=== PATIENT | male | born 1970 | race Hispanic/Latino ===

== ENCOUNTER 2018-02-22 18:17 | Observation (INO) | payer OTHER ==
[2018-02-22] MEDS ORDERED: ASPIRIN 81 MG CHEWABLE TABLET ONE (18:43)
[2018-02-22] MEDS ORDERED: NA CHLORIDE 0.9% 1,000 ML ONE (18:51)
[2018-02-22 19:21] LABS: Absolute Lymphocytes (CBC) 1.9 K/uL (0.7-4.9); Absolute Monocytes 0.8 K/uL (0.1-1.3); Absolute Neutrophil 9.6 K/uL (1.8-8.0); Basophils % 0.3 % (0-1.3); Eosinophils % 0.4 % (0-4.4); Hematocrit 40.8 % (39.6-49.0); Lymphocytes % 15.6 % (15.3-44.8); MCH 30.1 pg (27.0-35.0); MPV 8.7 fL (7.6-11.3); Monocytes % 6.4 % (3.3-12.3); RBC Red Blood Cell Count 4.58 M/uL (4.33-5.43)
[2018-02-22 19:32] LABS: ALT/SGPT 34 U/L (12-78); AST/SGOT 32 U/L (15-37); Albumin 3.7 g/dL (3.4-5.0); Alkaline Phosphatase 71 U/L (45-117); BUN Blood Urea Nitrogen 14 mg/dL (7-18); Bicarbonate 25 mmol/L (21-32); Bilirubin Direct 0.2 mg/dL (0-0.2); Bilirubin Total 0.9 mg/dL (0.2-1.0); Glucose Level 152 mg/dL (74-106); Magnesium 1.5 mg/dL (1.8-2.4); NT PRO-BNP 65 pg/mL (<125); Protein, Total 6.4 g/dL (6.4-8.2); Sodium Level 123 mmol/L (136-145); Troponin (Emerg Dept Use Only) 0.03 ng/mL (0.0-0.045)
[2018-02-22 19:34] LABS: Potassium 2.9 mmol/L (3.5-5.1)
[2018-02-22 19:36] LABS: Protime INR 1.09
--- NOTE | 2018-02-22 19:41 | RAD REPORT ---
EXAM DESCRIPTION: RAD - Chest Single View - 02/22/2018 7:29 pm CLINICAL HISTORY: CHEST PAIN Chest pain. COMPARISON: No comparisons FINDINGS: Portable technique limits examination quality. Mild interstitial pulmonary edema. The heart is normal in size. No displaced fractures. IMPRESSION: Mild interstitial pulmonary edema.
[2018-02-22] MEDS ORDERED: ONDANSETRON 4 MG/2 ML VIAL IV PRN (20:14)
[2018-02-22] MEDS ORDERED: ACETAMINOPHEN 500 MG TAB PO PRN (20:14)
[2018-02-22] MEDS ORDERED: MORPHINE 2 MG/ML SYR IV PRN (20:14)
--- NOTE | 2018-02-22 20:22 | ER ---
Nurse's Notes [facility] Name: Neri Frederick Age: 47 yrs Sex: Male : 1970 Arrival Date: 02/22/2018 Time: 18:18 Bed 6 Private MD: Diagnosis: Hypo-osmolality and hyponatremia;Hypomagnesemia;Hypokalemia Presentation: 02/22 18:19 Presenting complaint: Patient states: around 6:00 pm tonight at work, i started shaking hj and sweating, had this terrible headache (on the back of my neck), started having chest pain that radiates to my L arm; reports nausea;. Transition of care: patient was not received from another setting of care. Onset of symptoms was February 22, 2018. Risk Assessment: Do you want to hurt yourself or someone else? Patient reports no desire to harm self or others. Initial Sepsis Screen: Does the patient meet any 2 criteria? No. Patient's initial sepsis screen is negative. Does the patient have a suspected source of infection? No. Patient's initial sepsis screen is negative. Care prior to arrival: None. 18:19 Method Of Arrival: Ambulatory 18:19 Acuity: CHRIS 3 hj Triage Assessment: 18:23 Headache History: Denies prior headaches. General: Appears in no apparent distress. hj uncomfortable, Behavior is calm, cooperative, appropriate for age. Pain: Complains of pain in head, chest Pain currently is 5 out of 10 on a pain scale. Pain began 30 min ago. Also complains of nausea. 18:24 Neuro: Level of Consciousness is awake, alert, obeys commands, Oriented to person, hj place, time, situation, Appropriate for age. Historical: - Allergies: 18:23 No Known Allergies; hj - Home Meds: 18:23 valsartan-hydrochlorothiazide 160-12.5 mg oral tab 1 tab once daily [Active]; Zyrtec 10 hj mg Oral tab 1 tab once daily [Active]; - PMHx: 18:23 Hypertension; hj - PSHx: 18:23 None; hj - Immunization history:: Adult Immunizations up to date. - Social history:: Smoking status: Patient/guardian denies using tobacco, Patient/guardian denies using alcohol. - Ebola Screening: : Patient negative for fever greater than or equal to 101.5 degrees Fahrenheit, and additional compatible Ebola Virus Disease symptoms Patient denies exposure to infectious person Patient denies travel to an Ebola-affected area in the 21 days before illness onset. Screenin:23 Abuse screen: Denies threats or abuse. Denies injuries from another. Nutritional hj screening: No deficits noted. Tuberculosis screening: No symptoms or risk factors identified. Fall Risk None identified. Assessment: 18:36 General: Appears in no apparent distress. comfortable, Behavior is calm, cooperative. rv Pain: Complains of pain in NECK Pain currently is 5 out of 10 on a pain scale. Neuro: Level of Consciousness is awake, alert, obeys commands, Oriented to person, place, time, situation. Cardiovascular: Capillary refill < 3 seconds. Respiratory: Airway is patent. GI: No signs and/or symptoms were reported involving the gastrointestinal system. : No signs and/or symptoms were reported regarding the genitourinary system. EENT: No signs and/or symptoms were reported regarding the EENT system. Derm: Skin is intact. 19:02 General: Appears in no apparent distress. comfortable, Behavior is calm, cooperative, ea appropriate for age. Pain: Complains of pain in right occipital area and right base of the skull Pain currently is 8 out of 10 on a pain scale. Quality of pain is described as aching. Neuro: Level of Consciousness is awake, alert, obeys commands, Oriented to person, place, time, situation. Cardiovascular: Capillary refill < 3 seconds Patient's skin is warm and dry. Respiratory: Airway is patent Respiratory effort is even, unlabored, Respiratory pattern is regular, symmetrical, Breath sounds are clear bilaterally. GI: Abdomen is non-distended, Bowel sounds present X 4 quads. Derm: Skin is pink, warm \T\ dry. 20:00 Reassessment: Patient and/or family updated on plan of care and expected duration. Pain ea level reassessed. Patient is alert, oriented x 3, equal unlabored respirations, skin warm/dry/pink. Provider at bedside updating pt on plan of care. 21:12 Reassessment: Patient and/or family updated on plan of care and expected duration. Pain ea level reassessed. Patient is alert, oriented x 3, equal unlabored respirations, skin warm/dry/pink. Report called to receiving nurse on second floor. Vital Signs: 18:24 BP 143 / 93; Pulse 74; Resp 18; Temp 97.6(TE); Pulse Ox 100% on R/A; Weight 79.38 kg; hj Height 5 ft. 6 in. (167.64 cm); Pain 5/10; 19:05 BP 135 / 87; Pulse 75; Resp 18; Pulse Ox 99% ; ea 20:29 BP 140 / 89; Pulse 71; Resp 18; Pulse Ox 99% ; ea 21:13 BP 137 / 86; Pulse 67; Resp 20; Pulse Ox 96% on R/A; ea 18:24 Body Mass Index 28.25 (79.38 kg, 167.64 cm) hj ED Course: 18:18 Patient arrived in ED. as 18:22 Triage completed. hj 18:24 Arm band placed on left wrist. hj 18:24 Patient has correct armband on for positive identification. Placed in gown. Bed in low hj position. Call light in reach. Side rails up X 1. Adult w/ patient. 18:37 Miguelangel Zuniga MD is Attending Physician. gs 18:37 Initial lab(s) drawn, by az, sent to lab. EKG done. Inserted saline lock: 20 gauge in rv right antecubital area, using aseptic technique. Blood collected. 18:59 Report given to Octavio. 19:02 Julee Russo RN is Primary Nurse. ea 19:25 XRAY Chest (1 view) In Process Unspecified. EDMS 19:33 Notified ED physician of a critical lab result(s). potassium of 2.9. 20:20 Princess Sotelo MD is Hospitalizing Provider. gs 21:10 No provider procedures requiring assistance completed. Patient admitted, IV remains in ea place. Administered Medications: 18:45 Drug: NS 0.9% 1000 ml Route: IV; Rate: 1 bolus; Site: right antecubital; rv 20:05 Follow up: Response: No adverse reaction; IV Status: Completed infusion; IV Intake: ea 1000ml 20:27 Drug: Magnesium Sulfate 2 grams Route: IVPB; Infused Over: 2 hrs; Site: right ea antecubital; 21:14 Follow up: Response: No adverse reaction; IV Status: Infusion continued upon admission ea 20:27 Drug: Potassium Effervescent Tablet 50 mEq Route: PO; ea 20:45 Follow up: Response: No adverse reaction ea Intake: 20:05 IV: 1000ml; Total: 1000ml. ea Output: 20:44 Urine: 1800ml (Voided); Total: 1800ml. ea Outcome: 20:21 Decision to Hospitalize by Provider. 21:10 Admitted to Med/surg accompanied by tech, via wheelchair, room 212, with chart, Report ea called to Receiving nurse on second floor. 21:10 Condition: stable 21:10 Instructed on the need for admit. 21:13 Patient left the ED. ea Signatures: Dispatcher [employer] EDMS Heather Lundberg, RN RN Virginia Vaca RN RN Marline Valle Henry RN RN Julee Crespo RN RN ea Starr, Gregory, MD MD gs Vicente, Ronaldo RN RN rv Corrections: (The following items were deleted from the chart) 18:25 18:24 Pulse 74bpm; Resp 18bpm; Pulse Ox 100% RA; Temp 97.6F Temporal; 79.38 kg; Height hj 5 ft. 6 in.; BMI: 28.2; Pain 5/10; hj
--- NOTE | 2018-02-22 20:22 | EDPHYS ---
Physician Documentation [facility] Name: Neri Frederick Age: 47 yrs Sex: Male : 1970 Arrival Date: 02/22/2018 Time: 18:18 Bed 6 Private MD: ED Physician Miguelangel Zuniga HPI: 02/22 20:24 This 47 yrs old Male presents to ER via Ambulatory with complaints of Chest gs Pain, . 20:24 The patient or guardian reports chest pain that is located primarily in the anterior gs chest wall. Onset: today. The pain radiates to the left arm, left neck. Associated signs and symptoms: Pertinent negatives: diaphoresis, shortness of breath. The chest pain is described as a heaviness. Duration: The patient or guardian reports multiple episodes, that have now resolved, that wax and wane. Modifying factors: The symptoms are alleviated by nothing. the symptoms are aggravated by nothing. Severity of pain: At its worst the pain was moderate in the emergency department the pain has resolved. The patient has experienced similar episodes in the past, a few times. 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 Historical: - Allergies: 18:23 No Known Allergies; hj - Home Meds: 18:23 valsartan-hydrochlorothiazide 160-12.5 mg oral tab 1 tab once daily [Active]; Zyrtec 10 hj mg Oral tab 1 tab once daily [Active]; - PMHx: 18:23 Hypertension; hj - PSHx: 18:23 None; hj - Immunization history:: Adult Immunizations up to date. - Social history:: Smoking status: Patient/guardian denies using tobacco, Patient/guardian denies using alcohol. - Ebola Screening: : Patient negative for fever greater than or equal to 101.5 degrees Fahrenheit, and additional compatible Ebola Virus Disease symptoms Patient denies exposure to infectious person Patient denies travel to an Ebola-affected area in the 21 days before illness onset. ROS: 20:24 All other systems are negative. gs Exam: 20:24 Head/Face: Normocephalic, atraumatic. Eyes: Pupils equal round and reactive to light, gs extra-ocular motions intact. Lids and lashes normal. Conjunctiva and sclera are non-icteric and not injected. Cornea within normal limits. Periorbital areas with no swelling, redness, or edema. ENT: Nares patent. No nasal discharge, no septal abnormalities noted. Tympanic membranes are normal and external auditory canals are clear. Oropharynx with no redness, swelling, or masses, exudates, or evidence of obstruction, uvula midline. Mucous membranes moist. Neck: Trachea midline, no thyromegaly or masses palpated, and no cervical lymphadenopathy. Supple, full range of motion without nuchal rigidity, or vertebral point tenderness. No Meningismus. Chest/axilla: Normal chest wall appearance and motion. Nontender with no deformity. No lesions are appreciated. Cardiovascular: Regular rate and rhythm with a normal S1 and S2. No gallops, murmurs, or rubs. Normal PMI, no JVD. No pulse deficits. Respiratory: Lungs have equal breath sounds bilaterally, clear to auscultation and percussion. No rales, rhonchi or wheezes noted. No increased work of breathing, no retractions or nasal flaring. Abdomen/GI: Soft, non-tender, with normal bowel sounds. No distension or tympany. No guarding or rebound. No evidence of tenderness throughout. Back: No spinal tenderness. No costovertebral tenderness. Full range of motion. Skin: Warm, dry with normal turgor. Normal color with no rashes, no lesions, and no evidence of cellulitis. MS/ Extremity: Pulses equal, no cyanosis. Neurovascular intact. Full, normal range of motion. Neuro: Awake and alert, GCS 15, oriented to person, place, time, and situation. Cranial nerves II-XII grossly intact. Motor strength 5/5 in all extremities. Sensory grossly intact. Cerebellar exam normal. Normal gait. 20:24 Constitutional: The patient appears alert, awake. 20:24 ECG was reviewed by the Attending Physician. Vital Signs: 18:24 BP 143 / 93; Pulse 74; Resp 18; Temp 97.6(TE); Pulse Ox 100% on R/A; Weight 79.38 kg; hj Height 5 ft. 6 in. (167.64 cm); Pain 5/10; 19:05 BP 135 / 87; Pulse 75; Resp 18; Pulse Ox 99% ; ea 20:29 BP 140 / 89; Pulse 71; Resp 18; Pulse Ox 99% ; ea 21:13 BP 137 / 86; Pulse 67; Resp 20; Pulse Ox 96% on R/A; ea 18:24 Body Mass Index 28.25 (79.38 kg, 167.64 cm) hj MDM: 18:42 Patient medically screened. gs 20:24 Differential diagnosis: acute myocardial infarction, coronary artery disease pneumonia. Data reviewed: vital signs, nurses notes. 02/22 18:34 Order name: Basic Metabolic Panel; Complete Time: 19:35 02/22 18:34 Order name: CBC with Diff; Complete Time: 19:35 02/22 18:34 Order name: LFT's; Complete Time: 19:35 02/22 18:34 Order name: Magnesium; Complete Time: 19:35 02/22 18:34 Order name: NT PRO-BNP; Complete Time: 19:36 02/22 18:34 Order name: PT-INR; Complete Time: 19:42 02/22 18:34 Order name: Troponin (emerg Dept Use Only); Complete Time: 19:36 02/22 18:42 Order name: CPK; Complete Time: 19:35 02/22 20:17 Order name: Comprehensive Metabolic Panel [facility] 02/22 20:17 Order name: Comprehensive Metabolic Panel [facility] 02/22 20:17 Order name: Creatine Phosphokinase [facility] 02/22 20:17 Order name: Creatine Phosphokinase [facility] 02/22 20:17 Order name: Troponin I [facility] 02/22 20:17 Order name: Troponin I [facility] 02/22 18:34 Order name: XRAY Chest (1 view); Complete Time: 19:42 02/22 18:34 Order name: EKG; Complete Time: 18:35 02/22 18:34 Order name: Cardiac monitoring; Complete Time: 18:36 02/22 18:34 Order name: EKG - Nurse/Tech; Complete Time: 18:36 02/22 18:34 Order name: IV Saline Lock; Complete Time: 18:36 02/22 18:34 Order name: Labs collected and sent; Complete Time: 18:36 02/22 18:34 Order name: O2 Per Protocol; Complete Time: 18:35 02/22 18:34 Order name: O2 Sat Monitoring; Complete Time: 18:35 02/22 20:17 Order name: CONS Pharmacy Consult [facility] 02/22 20:17 Order name: Regular EDMS 02/22 20:17 Order name: Troponin I EDMS 02/22 20:17 Order name: CBC with Automated Diff EDMS 02/22 20:18 Order name: CBC with Automated Diff EDMS EC:24 Rate is 76 beats/min. Rhythm is regular. DE interval is normal. QRS interval is gs prolonged. No Q waves. ST Segment is depressed in leads III, aVF, V6. Clinical impression: NSR w/ Non-specific ST/T Changes. Interpreted by me. Administered Medications: 18:45 Drug: NS 0.9% 1000 ml Route: IV; Rate: 1 bolus; Site: right antecubital; rv 20:05 Follow up: Response: No adverse reaction; IV Status: Completed infusion; IV Intake: ea 1000ml 20:27 Drug: Magnesium Sulfate 2 grams Route: IVPB; Infused Over: 2 hrs; Site: right ea antecubital; 21:14 Follow up: Response: No adverse reaction; IV Status: Infusion continued upon admission ea 20:27 Drug: Potassium Effervescent Tablet 50 mEq Route: PO; ea 20:45 Follow up: Response: No adverse reaction ea Disposition: 02/22/18 20:21 Hospitalization ordered by Princess Sotelo for Inpatient Admission. Preliminary diagnosis are Hypo-osmolality and hyponatremia, Hypomagnesemia, Hypokalemia. - Bed requested for Telemetry/MedSurg (Inpatient). - Status is Inpatient Admission. ea - Condition is Stable. - Problem is new. - Symptoms have improved. UTI on Admission? No Signatures: Dispatcher [employer] EDNY Heather Lundberg RN RN ch Lewis, Kimberly, RN RN kl Joaquin, Henry, RN RN hj Antunez, Elena, RN RN ea Starr, Gregory, MD MD gs Vicente, Ronaldo, RN RN rv Corrections: (The following items were deleted from the chart) 20:32 20:21 Hospitalization Ordered by Princess Sotelo MD for Inpatient Admission. Preliminary kl diagnosis is Hypo-osmolality and hyponatremia; Hypomagnesemia; Hypokalemia. Bed requested for Telemetry/MedSurg (Inpatient). Status is Inpatient Admission. Condition is Stable. Problem is new. Symptoms have improved. UTI on Admission? No. 21:13 20:32 02/22/2018 20:21 Hospitalization Ordered by Princess Sotelo MD for Inpatient ea Admission. Preliminary diagnosis is Hypo-osmolality and hyponatremia; Hypomagnesemia; Hypokalemia. Bed requested for Telemetry/MedSurg (Inpatient). Status is Inpatient Admission. Condition is Stable. Problem is new. Symptoms have improved. UTI on Admission? No. kl
[2018-02-22] MEDS ORDERED: Magnesium Sulfate 2gm IVPB 2 G/50 ML BAG IV ONE (20:28)
[2018-02-22] MEDS ORDERED: POTASSIUM 25 MEQ EFFERV TAB ONE (20:28)
[2018-02-22] MEDS: NA CHLORIDE 0.9% 1,000 ML IV SCH (23:16)
[2018-02-22] MEDS ORDERED: KCL 20 MEQ/100 mL IVPB 20 MEQ/100 ML BAG IV SCH (23:45)
[2018-02-23 00:44] LABS: Urine Appearance CLEAR; Urine Bilirubin NEGATIVE (NEG); Urine Blood NEGATIVE (NEG); Urine Color YELLOW; Urine Glucose NEGATIVE (NEG); Urine Protein NEGATIVE (NEG); Urine Specific Gravity <=1.005 (1.005-1.030); Urine Urobilinogen 0.2 mg/dL (0.2-1.0)
[2018-02-23 00:45] LABS: Urine Microscopic Reflex NO UMIC
[2018-02-23 05:40] LABS: Absolute Lymphocytes (CBC) 1.9 K/uL (0.7-4.9); Absolute Monocytes 0.6 K/uL (0.1-1.3); Absolute Neutrophil 5.2 K/uL (1.8-8.0); Basophils % 0.3 % (0-1.3); Eosinophils % 1.1 % (0-4.4); Hematocrit 41.6 % (39.6-49.0); Lymphocytes % 24.5 % (15.3-44.8); MCH 31.1 pg (27.0-35.0); MCV 88.3 fL (80-100); MPV 8.9 fL (7.6-11.3); Monocytes % 7.4 % (3.3-12.3); RBC Red Blood Cell Count 4.72 M/uL (4.33-5.43)
[2018-02-23 06:00] LABS: ALT/SGPT 32 U/L (12-78); AST/SGOT 31 U/L (15-37); Albumin 3.3 g/dL (3.4-5.0); Alkaline Phosphatase 61 U/L (45-117); BUN Blood Urea Nitrogen 10 mg/dL (7-18); Bicarbonate 24 mmol/L (21-32); Creatine Phosphokinase 541 U/L (39-308); Glucose Level 104 mg/dL (74-106); Magnesium 2.5 mg/dL (1.8-2.4); Potassium 3.9 mmol/L (3.5-5.1); Protein, Total 6.1 g/dL (6.4-8.2); Sodium Level 142 mmol/L (136-145)
[2018-02-23] MEDS ORDERED: POTASSIUM CL SA 10 MEQ TAB PO ONE (06:08)
[2018-02-23] MEDS ORDERED: HYDRALAZINE HCL 20 MG/ML VIAL IV PRN (06:38)
[2018-02-23] MEDS: NA CHLORIDE 0.9% 1,000 ML IV SCH (06:43)
--- NOTE | 2018-02-23 06:56 | P.HP ---
Certification for Inpatient Patient admitted to: Observation With expected LOS: <2 Midnights Patient will require the following post-hospital care: None Practitioner: I am a practitioner with admitting privileges, knowledge of patient current condition, hospital course, and medical plan of care. Services: Services provided to patient in accordance with Admission requirements found in Title 42 Section 412.3 of the Code of Federal Regulations Patient History Date of Service: 02/22/18 Reason for admission: Dehydration/chest pain/hypkalemia and hypomagnesemia Allergies No Known Drug Allergies Allergy (Verified 02/22/18 23:16) Unknown Home Medications: Cetirizine HCl [Zyrtec] 10 mg PO DAILY 02/22/18 Valsartan/Hydrochlorothiazide [Valsartan-Hctz 160-12.5 mg Tab] 12.5 tab PO DAILY 02/22/18 - Past Medical/Surgical History Has patient received pneumonia vaccine in the past: No -: Hypertension -: DVT - Social History Smoking Status: Former smoker Alcohol use: Yes CD- Drugs: No Caffeine use: Yes Place of Residence: Home Physical Examination - Vital Signs Temperature: 97.2 F Blood Pressure: 114/71 Pulse: 65 Respirations: 16 Pulse Ox (%): 97 - Studies Laboratory Data (last 24 hrs) 02/22/18 18:50: PT 12.9 H, INR 1.09 02/22/18 18:50: WBC 12.4 H, Hgb 13.8, Hct 40.8, Plt Count 196 02/22/18 18:50: Sodium 123 L, Potassium 2.9 L*, BUN 14, Creatinine 0.90, Glucose 152 H, Magnesium 1.5 L, Total Bilirubin 0.9, AST 32, ALT 34, Alkaline Phosphatase 71 Assessment & Plan - Advance Directives Does patient have a Living Will: No Does patient have a Durable POA for Healthcare: No
[2018-02-23 07:12] LABS: Thyroid Stimulating Hormone 0.873 uIU/mL (0.360-3.740)
[2018-02-23] MEDS ORDERED: INFLUENZA VACCINE (for 3y+) 0.5 ML DOSE IMVAC ONE (08:00)
[2018-02-23] MEDS ORDERED: CETIRIZINE HCL 5 MG TABLET PO SCH (09:00)
[2018-02-23] MEDS ORDERED: ASPIRIN EC 81 MG TAB PO SCH (09:00)
--- NOTE | 2018-02-23 10:00 | P.PN ---
Subjective Date of Service: 02/23/18 Chief Complaint: Dehydration/chest pain/hypkalemia and hypomagnesemia Subjective: Improving (No significant chest pain, shortness of breath noted.) Physical Examination - Vital Signs Temperature: 98.5 F Blood Pressure: 129/78 Pulse: 62 Respirations: 16 Pulse Ox (%): 95 - Physical Exam General: Alert, In no apparent distress, Oriented x3, Cooperative HEENT: Atraumatic, Mucous membr. moist/pink Neck: Supple Respiratory: Clear to auscultation bilaterally, Normal air movement Cardiovascular: Normal pulses, Regular rate/rhythm Gastrointestinal: Normal bowel sounds, Soft and benign, Non-distended, No tenderness, No masses, No rebound, No guarding Musculoskeletal: No erythema, No tenderness, No warmth Integumentary: No erythema, No warmth, No cyanosis, Tenderness/swelling (Mild edema noted to the left lower extremity. [id number]-[id number]) Neurological: Normal speech, Normal strength at 5/5 x4 extr, Normal tone, Normal affect - Studies Laboratory Data (last 24 hrs) 02/22/18 18:50: PT 12.9 H, INR 1.09 02/22/18 18:50: WBC 12.4 H, Hgb 13.8, Hct 40.8, Plt Count 196 02/22/18 18:50: Sodium 123 L, Potassium 2.9 L*, BUN 14, Creatinine 0.90, Glucose 152 H, Magnesium 1.5 L, Total Bilirubin 0.9, AST 32, ALT 34, Alkaline Phosphatase 71 Medications List Reviewed: Yes Assessment & Plan Discharge Plan: Home Plan to discharge in: 24 Hours Physician Review Additional Text: Impression: Elevated CPK, hyponatremia, hyponatremia and hypomagnesia secondary to Rhabdomyolysis likely related to dehydration and medication-diuretic Hypertension Mitral valve regurgitation suspected Left lower extremity edema, chronic with 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 Electrolytes now within normal range. Patient likely dehydrated yesterday due to poor oral intake and with related to medication- valsartan/hydrochlorothiazide. Will ambulate patient. Cardiology has evaluated patient. No need for stress test at this time. Will check echocardiogram. Will recommend to discontinue hydrochlorothiazide. Patient may continue with valsartan at discharge. Anticipate discharge later today if improved. Hypertension: Will discontinue valsartan/hydrochlorothiazide. Will continue with valsartan only at discharge due to hyponatremia and hypokalemia. Mitral valve regurgitation suspected: Patient reports being seen by cardiology in [place]. He reports of a floppy valve. Suspect mitral valve regurgitation. Will check echocardiogram to further evaluate. 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 He reports that last year venous Doppler was reassessed and unremarkable by PCP/ Cardiology in [place]. He also had lab done at that time to assess his DVT/PE. He was taken off Xarelto at that time as both were normal. Patient still with lower extremity edema. Patient travels a great deal on the road. Will check venous Doppler and D-dimer. If abnormal patient may require long- term chronic anti coagulation therapy. Will consider CT angio if abnormal. Will reassess later. Obesity, BMI 30: Will continue with lifestyle modification education. Time Spent Managing Pts Care (In Minutes): 55
--- NOTE | 2018-02-23 10:45 | RAD REPORT ---
EXAM DESCRIPTION: USExtrem Venous W Compress Bil02/23/2018 10:27 am CLINICAL HISTORY: Bilateral leg swelling COMPARISON: none FINDINGS: The common femoral, superficial femoral, popliteal and posterior tibial veins bilaterally are compressible and demonstrate augmentation. Doppler demonstrates good flow. IMPRESSION: No evidence of deep venous thrombosis involving either lower extremity.
--- NOTE | 2018-02-23 13:28 | CON ---
History Of Present Illness: Mr. Frederick is 47. He came to the hospital because of pain in the back of his neck. It radiated down his right arm. Troponins were drawn. The patient was not having ches t pain, and the troponins are abnormal. There is one of 0.05 and one of 0.03. Mr. Frederick has had a heart catheterization 2 years ago that was normal. It was in [place]. He has had a stress t est since then, that was normal. 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 He uses no tobacco. He has well-controlled blood pressure. He does not have dyslipidemia, does not have diabetes. Medications: Home medications have been valsartan with hydrochlorothiazide. He uses Zyrtec as neede d for seasonal allergies. Allergies: HE HAS NO DRUG ALLERGIES. Physical Examination: Vital signs: Five feet and 6 inches, 188 pounds. HEENT: Normal. Lungs: Clear. Cardiac: Normal. Abdomen: Soft. Extremities: Normal. No cyanosis, clubbing, or edema. Distal pulses normal. Laboratory Data: His electrocardiogram is within normal limits. Impression: The troponin of 0.05 should not detract us from what is obvious. He has a healthy heart . He has gone through extensive testing. One would even be able to question why a troponin was draw n in this situation. I do not think we need to draw anymore. The patient has a history of DVT. It was non-induced or idiopathic, not associated with surgery or bed rest or trauma. He was on Xarelto for 6 months and then stopped. In patients like this, it is beneficial for them to take Xarelto 10 m g daily the rest of their life. I will ask Dr. Berry to explain that to him and to see if he wants to continue with Xarelto 10 indefinitely because of his remote history of DVT. JESSICA/AIDE Voice ID: [id number] Report ID: [id number]
--- NOTE | 2018-02-23 13:37 | EKG ---
Test Date: 2018-02-22 Test Time: 18:27:38 Library Media Assistant: MEASUREMENT RESULTS: Intervals: Rate: 76 VT: 154 QRSD: 108 QT: 380 QTc: 427 [place]: P: 49 VT: 154 QRS: 72 T: 12 INTERPRETIVE STATEMENTS: Normal sinus rhythm Normal ECG No previous ECG available for comparison Electronically Signed On 02-23-18 13:36:04 [employer] by Wenceslao Ennis
--- NOTE | 2018-02-23 13:43 | P.DS ---
Admission Date: 02/22/18 Discharge Date: 02/23/18 Primary Care Provider: [place]-PCP/Cardiology Disposition: ROUTINE DISCHARGE Discharge Condition: GOOD Reason for Admission: Dehydration/chest pain/hypkalemia and hypomagnesemia Consultations: Cardiology-Dr. Ennis Procedures: Venous Doppler: COMPARISON: none FINDINGS: The common femoral, superficial femoral, popliteal and posterior tibial veins bilaterally are compressible and demonstrate augmentation. Doppler demonstrates good flow. IMPRESSION: No evidence of deep venous thrombosis involving either lower extremity. 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 Patient evaluated in the emergency room. Patient with elevated CPK likely rhabdomyolysis. Patient was admitted for further evaluate Hospital Course: Patient presented with weakness. Patient found to have elevated CPK and troponin with noted hyponatremia/hypokalemia and hypomagnesia. This was likely from dehydration. Patient likely had a component of rhabdomyolysis. Patient also taking Arb inhibitor with diuretic. This likely contributed to the electrolyte abnormalities. Patient was hydrated with IV fluids. Patient improved. Patient without weakness or cramping. Patient seen and evaluated by Cardiology. No cardiac intervention needed at this time. Patient is from [place]. He is seen by cardiology in [place] for Hypertension and possible mitral valve regurgitation. At discharge patient will continue with hydration. Recommendation to continue with aspirin 81 mg daily. Patient may follow up with cardiology in the area to monitor his condition. Patient plans to go back to [place] to follow up with cardiology. Echocardiogram done. This can be followed up by his special education tutor. Education on dehydration and rhabdomyolysis provided. Recommendation to recheck lab-BMP in 1 week to follow up this hospitalization. Patient has hypertension. Medications adjusted during his stay. Valsartan/ hydrochlorothiazide discontinued due to electrolyte abnormalities. At discharge he will continue with valsartan 1 pill daily. Recommendation is to maintain blood pressures less 150/80. Further adjustment can be done by his PCP or cardiology. Patient with history of lower extremity edema. This is chronic. Patient with history of distant pulmonary embolism and DVT likely provoked as the patient is a frequent traveler. Patient reports that he was treated with anti coagulation therapy-Xarelto for over a year in [place]. Patient was re-evaluated after that time. Repeat venous Doppler and lab showed no further need for chronic anti coagulation therapy by his PCP/cardiology in [place]. Today , Ultrasound was done due to edema. No DVT noted. D-dimer negative. At discharge no need for chronic anti coagulation therapy at this time. Recommendation to continue with aspirin 81 mg daily. Prevention of DVT and PE will be provided. Patient with obesity. BMI 30. Lifestyle modification education will be provided. Patient reports history of regurgitation. Patient likely with mitral valve regurgitation. Echocardiogram to be performed. This can be followed up by his PCP or cardiology. Vital Signs/Physical Exam: Temp Pulse Resp BP Pulse Ox 98.5 F 62 16 129/78 95 02/23/18 10:05 02/23/18 10:05 02/23/18 10:05 02/23/18 10:05 02/23/18 10:05 General: Alert, In no apparent distress, Oriented x3, Cooperative HEENT: Atraumatic, Normocephalic, PERRLA, Mucous membr. moist/pink Neck: Supple, No Thyromegaly Respiratory: Clear to auscultation bilaterally, Normal air movement Cardiovascular: Normal pulses, Regular rate/rhythm Gastrointestinal: Normal bowel sounds, Soft and benign, Non-distended, No tenderness, No masses, No rebound, No guarding Musculoskeletal: No contractures, No erythema, No tenderness, No warmth Integumentary: No erythema, No warmth, No cyanosis, Tenderness/swelling (Mild edema to the left lower extremity nonpitting) Neurological: Normal speech, Normal strength at 5/5 x4 extr, Normal tone, Normal affect Laboratory Data at Discharge: WBC 7.9 K/uL (4.3-10.9) D 02/23/18 04:29 Hgb 14.7 g/dL (13.6-17.9) 02/23/18 04:29 Hct 41.6 % (39.6-49.0) 02/23/18 04:29 Plt Count 225 K/uL (152-406) 02/23/18 04:29 PT 12.9 SECONDS (9.5-12.5) H 02/22/18 18:50 INR 1.09 02/22/18 18:50 Sodium 142 mmol/L (136-145) 02/23/18 04:26 Potassium 3.9 mmol/L (3.5-5.1) 02/23/18 04:26 BUN 10 mg/dL (7-18) 02/23/18 04:26 Creatinine 0.70 mg/dL (0.55-1.3) 02/23/18 04:26 Glucose 104 mg/dL (74-106) 02/23/18 04:26 Phosphorus Cancelled 02/23/18 05:00 Magnesium 2.5 mg/dL (1.8-2.4) H D 02/23/18 04:26 Total Bilirubin 1.0 mg/dL (0.2-1.0) 02/23/18 04:26 AST 31 U/L (15-37) 02/23/18 04:26 ALT 32 U/L (12-78) 02/23/18 04:26 Alkaline Phosphatase 61 U/L (45-117) 02/23/18 04:26 Troponin I 0.05 ng/mL (0.0-0.045) H 02/22/18 23:20 Triglycerides 60 mg/dL (<150) 02/23/18 04:26 Cholesterol 144 mg/dL (<200) 02/23/18 04:26 HDL Cholesterol 40 mg/dL (40-60) 02/23/18 04:26 Cholesterol/HDL Ratio 3.60 02/23/18 04:26 Home Medications: Cetirizine HCl [Zyrtec] 10 mg PO DAILY 02/22/18 Aspirin [Aspirin EC 81 MG] 81 mg PO DAILY #90 tablet. 02/23/18 Valsartan 160 mg PO DAILY #30 tablet 02/23/18 New Medications: Aspirin [Aspirin EC 81 MG] 81 mg PO DAILY #90 tablet. Valsartan 160 mg PO DAILY #30 tablet Patient Discharge Instructions: 1. Patient will need to establish care locally to follow up this hospitalization. 2. Patient presented with weakness. Patient found to have elevated CPK and troponin with noted hyponatremia/ hypokalemia and hypomagnesia. This was likely from dehydration. Patient likely had a component of rhabdomyolysis. Patient also taking Arb inhibitor with diuretic. This likely contributed to the electrolyte abnormalities. Patient was hydrated with IV fluids. Patient improved. Patient without weakness or cramping. Patient seen and evaluated by Cardiology. No cardiac intervention needed at this time. Patient is from [place]. He is seen by cardiology in [place] for Hypertension and possible mitral valve regurgitation. At discharge patient will continue with hydration. Recommendation to continue with aspirin 81 mg daily. Patient may follow up with cardiology in the area to monitor his condition. Patient plans to go back to [place] to follow up with cardiology. Echocardiogram done. This can be followed up by his special education tutor. Education on dehydration and rhabdomyolysis will be provided. Recommendation to recheck lab-BMP in 1 week to follow up this hospitalization. 3. Patient has hypertension. Medications adjusted during his stay. Valsartan/hydrochlorothiazide discontinued due to electrolyte abnormalities. At discharge he will continue with valsartan 160 mg 1 pill daily. Recommendation is to maintain blood pressures less 150/80. Further adjustment can be done by his PCP or cardiology. 4. Patient with history of lower extremity edema. This is chronic. Patient with history of distant pulmonary embolism and DVT likely provoked as the patient is a frequent traveler. Patient reports that he was treated with anti coagulation therapy- Xarelto for over a year in [place]. Patient was re-evaluated after that time. Repeat venous Doppler and lab showed no further need for chronic anti coagulation therapy by his PCP/cardiology in [place]. Today, Ultrasound was done due to edema. No DVT noted. D-dimer negative. At discharge no need for chronic anti coagulation therapy at this time. Recommendation to continue with aspirin 81 mg daily. Prevention of DVT and PE will be provided. 5. Patient with obesity. BMI 30. Lifestyle modification education will be provided. 6. Patient reports history of regurgitation. Patient likely with mitral valve regurgitation. Echocardiogram to be performed. This can be followed up by his PCP or cardiology. Diet: AHA Activity: Ad sandra Time spent managing pt's care (in minutes): 55
--- NOTE | 2018-02-23 15:03 | ECHO ---
HEIGHT: 5 ft 6 in WEIGHT: 188 lb 12.8 oz DATE OF STUDY: 02/23/[address]: Princess Sotelo MD 2-DIMENSIONAL: YES M.MODE: YES DOPPLER: YES COLOR FLOW: YES TDS: YES PORTABLE: DEFINITY: BUBBLE STUDY: DIAGNOSIS: CHEST PAIN CARDIAC HISTORY: CATHERIZATION: NO SURGERY: YES PROSTHETIC VALVE: YES PACEMAKER: NO MEASUREMENTS (cm) DIASTOLIC (NORMALS) SYSTOLIC (NORMALS) IVSd 1.1 (0.6-1.2) LA Diam 3.8 (1.9-4.0) LVEF 72% LVIDd 5.1 (3.5-5.7) LVIDs 30. (2.0-3.5) %FS 41% LVPWd 1.0 (0.6-1.2) Ao Diam 3.3 (2.0-3.7) 2 DIMENSIONAL ASSESSMENT: RIGHT ATRIUM: NORMAL LEFT ATRIUM: NORMAL RIGHT VENTRICLE: NORMAL LEFT VENTRICLE: NORMAL TRICUSPID VALVE: NORMAL MITRAL VALVE: NORMAL PULMONIC VALVE: NORMAL AORTIC VALVE: NORMAL PERICARDIAL EFFUSION: NONE AORTIC ROOT: NORMAL LEFT VENTRICULAR WALL MOTION: NORMAL DOPPLER/COLOR FLOW: PHYSIOLOGIC TRICUSPID REGURGITATION. NORMAL RIGHT VENTRICULAR SYSTOLIC PRESSURE. COMMENTS: NORMAL 2-DIMENSIONAL ECHOCARDIOGRAM WITH DOPPLER. TECHNOLOGIST: ANGEL COLON
[2018-02-23] MEDS ORDERED: ENOXAPARIN 40 MG/0.4 ML SQ SCH (17:00)
[2018-02-24] MEDS ORDERED: PANTOPRAZOLE 40MG TABLET PO SCH (06:30)
== END 2018-02-23 14:50 | disposition home or self-care (01) ==
LOC: ER 18:17 → 2ND 20:15
PROVIDERS: ADMIT Hospitalist; ATTEND Family Medicine
DX: R53.1 Weakness (principal); E87.1 Hypo-osmolality and hyponatremia; E87.6 Hypokalemia; E83.42 Hypomagnesemia; R60.0 Localized edema; R79.9 Abnormal finding of blood chemistry, unspecified; I10 Essential (primary) hypertension; Z86.711 Personal history of pulmonary embolism; Z86.718 Personal history of other venous thrombosis and embolism; E66.9 Obesity, unspecified; Z68.30 Body mass index [BMI] 30.0-30.9, adult; Z23 Encounter for immunization
CPT/HCPCS: 36415; 71045; 80048; 80053; 80061; 80076; 81003; 82550; 83735; 83880; 84100; 84439; 84443; 84484; 85025; 85379; 85610; 93005; 93306; 93970; 96361; 96365; 99285; G0008; G0378; J2270; J3475; J7030; Q2035